=== PATIENT | female | born 1960 | race Caucasian/White ===

== ENCOUNTER → 2018-06-15 | Outpatient (CLI) | payer BC ==
[~2018-06-15] MED LIST: ALEN70TA43 PO; FLU60VIA41 IM; LEVO-3 PO; LEVO150T72 PO
[2018-06-15 14:01] LABS: PLATELET COUNT, AUTOMATED 290 K/uL (150-450)
[2018-06-15 14:36] LABS: LDL CHOLESTEROL 139 mg/dl
== END ==
LOC: LAB 13:20
PROVIDERS: ATTEND Emergency Medicine
DX: M81.0 Age-related osteoporosis without current pathological fracture (principal); G62.9 Polyneuropathy, unspecified; E03.9 Hypothyroidism, unspecified
CPT/HCPCS: 36415; 82040; 82247; 82306; 82310; 82374; 82435; 82465; 82565; 82607; 82947; 83718; 83970; 84075; 84132; 84155; 84295; 84443; 84450; 84460; 84478; 84520; 85025

== ENCOUNTER → 2018-11-23 | Outpatient (CLI) | payer BC ==
[~2018-11-23] MED LIST changes: +CYA1000 PO
--- NOTE | 2018-11-24 10:47 | RADIOLOGY IMAGING REPORT ---
FACILITY: [facility] PATIENT NAME: BRINDA ADAMS : [id number] MR: [id number] V: [id number] EXAM DATE: [id number] ORDERING PHYSICIAN: WALT JIMENEZ TECHNOLOGIST: Tessy Lugo PROCEDURE:BILATERAL DIGITAL SCREENING MAMMOGRAM WITH CAD ASSISTED INTERPRETATION & 3D TOMOSYNTHESIS COMPARISON:Prior mammograms 02/07/16, 10/28/14. INDICATIONS:screening FINDINGS: There are scattered areas of fibroglandular density throughout the breasts. The parenchymal pattern has remained stable allowing for difference in mammographic technique & patient positioning. DIAGNOSTIC CATEGORY 1--NEGATIVE. RECOMMENDATIONS: ROUTINE MAMMOGRAM AND CLINICAL EVALUATION. IMPRESSION: BIRADS 1: Negative. No significant abnormality is seen. Dictated by: Rosa Green M.D. on 11/23/2018 at 18:24 Transcribed by: HECTOR on 11/24/2018 at 8:15 Approved by: Rosa Green M.D. on 11/24/2018 at 10:46 [facility]
== END ==
LOC: MAMO 07:36
PROVIDERS: ATTEND Emergency Medicine
DX: Z12.31 Encounter for screening mammogram for malignant neoplasm of breast (principal)
CPT/HCPCS: 77063; 77067

== ENCOUNTER → 2019-04-19 | Outpatient (CLI) | payer BC ==
[~2019-04-19] MED LIST changes: +LEVO88TA45 PO
[2019-04-19 14:33] LABS: PLATELET COUNT, AUTOMATED 228 K/uL (150-450)
--- NOTE | 2019-04-19 15:04 | RADIOLOGY IMAGING REPORT ---
FACILITY: [facility] [place] PATIENT NAME: Colleen Ortiz : 1960 MR: [id number] V: [id number] EXAM DATE: ORDERING PHYSICIAN: WALT JIMENEZ TECHNOLOGIST: Location: [facility] - [place], [place] Patient: Colleen Ortiz : 1960 Visit/Account:[id number] Date of Sevice: 04/19/2019 Exam type: CHEST PA LAT History: Arthralgias Comparison: None. Findings: The lungs are free of acute effusions, infiltrates or edema. Cardiac silhouette is normal in size. Trachea is in midline. There are mild degenerative changes of the thoracic spine IMPRESSION: 1. No acute cardiopulmonary process is seen Report Dictated By: Rosa Green MD at 04/19/2019 2:53 PM Report E-Signed By: Rosa Green MD at 04/19/2019 2:54 PM WSN:[email or web address]
== END ==
LOC: LAB 13:30
PROVIDERS: ATTEND Emergency Medicine
DX: M25.50 Pain in unspecified joint (principal)
CPT/HCPCS: 36415; 71046; 81001; 85025

== ENCOUNTER → 2019-04-20 | Outpatient (CLI) | payer BC | LOC: LAB 11:24 | PROVIDERS: ATTEND Emergency Medicine | DX: E03.9 Hypothyroidism, unspecified (principal); E53.8 Deficiency of other specified B group vitamins; M25.50 Pain in unspecified joint | CPT/HCPCS: 36415; 82607; 84443; 86140 ==